=== PATIENT | female | born 1990 | race African-American/Black ===

== ENCOUNTER 2019-09-04 17:55 | Observation (INO) | payer MEDICAID, OTHER ==
[~2019-09-04] VITALS: Ht 168.9 cm; Wt 69.9 kg
[2019-09-04] MEDS ORDERED: PREN-182 MT (19:51)
[2019-09-04] MEDS ORDERED: FERR324T4 PO (19:54)
[2019-09-04] MEDS: RHO(D) IMMUNE GLOBULIN 300 MCG/SYR IM NR (20:10)
== END 2019-09-04 21:18 | disposition home or self-care (01) ==
LOC: LAB 17:55 → 8 EST LDRP 18:46
PROVIDERS: ADMIT Specialist; ATTEND Specialist
DX: Z34.80 Encounter for supervision of other normal pregnancy, unspecified trimester (principal); Z23 Encounter for immunization; Z3A.00 Weeks of gestation of pregnancy not specified
CPT/HCPCS: 36415; 86850; 86900; 86901; 90384; 96372; 99281; G0378